=== PATIENT | male | born 1975 | race Caucasian/White ===

== ENCOUNTER → 2020-04-11 16:39 | Outpatient (CLI) | payer OTHER, SELFPAY ==
[2020-04-11 17:25] LABS: Absolute Lymphocyte Count 2.23 X10^3/uL (0.83-4.51); Basophil# 0.05 X10^3/uL; Basophil% 0.6 % (0-1); Eosinophil# 0.15 X10^3/uL; Eosinophils% 1.8 % (0-5); Hematocrit 45.2 % (40-54); Hemoglobin 14.8 g/dL (13.0-16.5); Lymphocyte # 2.23 X10^3/ul (4.0); Lymphocyte % 26.9 % (19-41); Mean Corp Hgb Conc 32.7 g/dL (32-36); Mean Corpuscular Hgb 30.1 pg (27.0-32.0); Mean Corpuscular Volume 91.9 fL (80-94); Mean Platelet Vol. 10.1 fl (6.2-12.0); Monocyte# 0.82 X10^3/uL; Monocyte% 9.9 % (0-10); NRBC Flagged by Analyzer 0 % (0-5); Neutrophil # 5.01 X10^3/uL (2.7-7.7); Neutrophil % 60.6 % (47-70); Platelet Count 248 K/mm3 (150-450); RBC Distribution Width CV 13.1 % (11.6-14.6); Red Blood Count 4.92 M/mm3 (4.6-6.2); White Blood Count 8.3 K/mm3 (4.4-11.0)
[2020-04-11 19:08] LABS: AST(SGOT) 40 U/L (15-37); Alanine Aminotransfer ALT/SGPT 60 U/L (16-61); Albumin, Serum 3.8 g/dL (3.2-5.0); Alkaline Phosphatase 89 U/L (45-117); Anion Gap 6 (5-15); BUN 14 mg/dL (7-18); BUN/Creat Ratio 12.6 RATIO (10-20); Calcium,Total 9.4 mg/dL (8.5-10.1); Chloride 106 mmol/L (98-107); Creatinine, Serum 1.11 mg/dL (0.70-1.30); EST Glomerular Filtration Rate 76 mL/min (>60); Est Glom Filt Rate - Afr Amer 92 mL/min (>60); Globulin 3.7 g/dL (2.2-4.2); Glucose 108 mg/dL (74-106); Potassium 4.2 mmol/L (3.5-5.1); Protein, Total 7.5 g/dL (6.4-8.2); Sodium Level 138 mmol/L (136-145); Thyroid Stim Hormone (TSH) 0.33 uIU/mL (0.358-3.74)
[2020-04-12 10:13] LABS: T3 Uptake 39 % (33-40); T4 Free Direct 0.93 ng/dL (0.76-1.46)
== END ==
PROVIDERS: Visit Provider Family Medicine Geriatric Medicine
DX: E05.90 Thyrotoxicosis, unspecified without thyrotoxic crisis or storm (principal); R53.83 Other fatigue
CPT/HCPCS: 36415; 80053; 84439; 84443; 84479; 85025

== ENCOUNTER → 2020-04-15 14:03 | Outpatient (CLI) | payer OTHER, SELFPAY ==
--- NOTE | 2020-04-15 14:06 | US_ITS ---
STUDY: ULTRASOUND BREAST - LEFT REASON FOR EXAM: Male, 45 years old. Left retroareolar lump. TECHNIQUE: Axial and longitudinal images of the LEFT breast were performed with a high resolution ultrasound transducer. # OF IMAGES: 24 COMPARISON: Comparison is made with prior mammogram done earlier in the day. FINDINGS: LEFT Breast: The palpable abnormality corresponds to a 1.1 cm x 1.1 cm x 0.4 cm irregular hypodense nodule in the retroareolar region of the left breast. A biopsy is recommended for further evaluation. US/Breast Limited Unilateral IMPRESSION: 1.1 cm x 1.1 cm x 0.4 cm irregular hypodense nodule in the retroareolar region of the left breast. A biopsy recommended. ASSESSMENT CATEGORY: BIRADS Category 4: Suspicious - Biopsy Should Be Considered. A letter regarding these results will be sent to the patient by the facility within 30 days. Electronically Signed: Wade Jang, at 10:05 EDT , Service support ,
--- NOTE | 2020-04-15 14:06 | BI_ITS ---
MAMMOGRAPHY - BILATERAL DIAGNOSTIC REASON FOR EXAM: Male, 45 years old. MALE PT - BILAT DX FOR LT LUMP AND TENDERNESS - FAM HX OF MOTHER @ AGE 50''S - PT CURRENTLY TAKING CRESTOR X 2-3 YRS PERTINENT HISTORY: Non-contributory. TECHNIQUE: Digital bilateral breast ruth ann (3D mammographic acquisition) in the CC and MLO projections. 2-D mediolateral oblique (MLO) and craniocaudad (CC) views of both breasts were obtained. CAD: Full Field Digital Mammography with Computer Added Detection was performed. COMPARISON: None. FINDINGS: Breast Composition: The breasts are almost entirely fatty. There is flame-shaped retroareolar opacity in the left breast may represent gynecomastia. Further evaluation by ultrasound be helpful to exclude a mass. Ultrasound is performed on the same day. No other significant abnormalities are identified. BI/DIAG MAMM W/CAD, BILAT IMPRESSION: Further ultrasonographic evaluation recommended, as described above. (I) ASSESSMENT CATEGORY: BIRADS Category 0: Incomplete. Need additional imaging evaluation. A letter regarding these results will be sent to the patient by the facility within 30 days. Approximately 10% of breast cancers are not detected by mammography. A normal mammogram should not delay biopsy of a clinically suspicious abnormality. Electronically Signed: Yarely Salmeron, at 15:41 EDT Tel , Service support ,
== END ==
PROVIDERS: PCP Family Medicine Geriatric Medicine; Referring Provider Family Medicine Geriatric Medicine; Visit Provider Family Medicine Geriatric Medicine
DX: N63.42 Unspecified lump in left breast, subareolar (principal)
CPT/HCPCS: 76642; 77062; 77066; G0279

== ENCOUNTER → 2020-05-17 | Outpatient (CLI) | payer OTHER, SELFPAY ==
[2020-05-17 14:59] VITALS: BMI 37.0
--- NOTE | 2020-05-17 15:00 | BRBX_PTH ---
PATIENT: MIHIR MO LOC: [facility] U#:[id number] AGE/SX: 45/M ROOM: RE05/17/[address]: Dr. David Rodriguez MD : 1975 BED: DIS: 05/17/2020 SPEC #: [id number] RECD: 05/17/20 15:49 STATUS: BRITTANY NORAH #: [id number] NATALI: 05/17/20 15:[address]: David Rodriguez DEPT: SURGICAL PATHOLOGY RECD BY: Nazario Will ENTERED: 05/18/20 09:25 SP TYPE: BREAST BX OTHR DR: Dr. Crow Bojorquez MD Tissues: Left breast, NOS Procedures: Surgery Specimen Level IV HEADER OPERATION: Left breast biopsy PRE-OP DIAGNOSIS: Abnormal breast ultrasound TISSUE SUBMITTED: Left breast tissue MICROSCOPIC DIAGNOSIS Left breast, ultrasound-guided core biopsy: Consistent with gynecomastia. AM:inez 05/19/20 MICROSCOPIC DESCRIPTION Slides are reviewed. GROSS DESCRIPTION Received in fixative is one container labeled with the patient name and designated left breast. The specimen consists of multiple elongated fragments of packer-yellow fibroadipose tissue that in aggregate measure 2 x 0.3 x 0.1 cm. The entire specimen is submitted in one cassette. / SJ:inez 05/18/20 TC:5 CPT: 82266
== END | disposition home or self-care (01) ==
LOC: LABSPEC 15:53
PROVIDERS: PCP Family Medicine Geriatric Medicine; Referring Provider Surgery; Visit Provider Surgery
DX: R92.8 Other abnormal and inconclusive findings on diagnostic imaging of breast (principal)
CPT/HCPCS: 88305

== ENCOUNTER 2022-02-02 06:28 | Outpatient (CLI) | payer OTHER, SELFPAY ==
--- NOTE | 2022-02-02 06:29 | MRI_ITS ---
STUDY: MRI THORACIC SPINE WITHOUT CONTRAST REASON FOR EXAM: Male, 46 years old. Pain ENTIRE BACK, WORSE MID BACK TECHNIQUE: Standardized fat and water weighted pulse sequences were obtained in the sagittal and axial planes. COMPARISON: Thoracic spine radiographs 01/17/2022 FINDINGS: Normal kyphosis of the thoracic spine. There is no substantial scoliosis. T1-2, T2-3, T3-4, T4-5, T5-6, T6-7, T7-8, T8-9, T9-10, T10-11, T11-12: Small T5 benign vertebral body hemangioma. Mild anterior wedging without bone edema involving T6, T7, T8, T9 and T10 vertebral bodies are presumably from remote injury. Normal remaining vertebral body heights. Normal central canal and bilateral lateral recesses. Normal bilateral intervertebral neural foramina. No ventral extradural defect. Normal visualized thoracic cord. Normal conus medullaris that terminates at the mid T12 vertebral body level. The soft tissue structures are unremarkable. MRI/Spine Thoracic (Routine) IMPRESSION: 1. Mild old compression fractures involving the vertebral bodies of T6, T7, T8, T9 and T10. 2. No MRI evidence of thoracic extruded disc fragment or spinal stenosis. 3. Small T5 benign vertebral body hemangioma. 4. Normal thoracic spinal cord. Electronically Signed: Kalin Trevizo MD at 8:54 EST ,
== END 2022-02-02 23:59 | disposition home or self-care (01) ==
PROVIDERS: PCP Family Medicine Geriatric Medicine; Referring Provider Family Medicine Geriatric Medicine; Visit Provider Orthopaedic Surgery
DX: M42.04 Juvenile osteochondrosis of spine, thoracic region (principal); M54.9 Dorsalgia, unspecified
CPT/HCPCS: 72146